=== PATIENT | female | born 1995 | race Caucasian/White ===

== ENCOUNTER → 2019-06-13 10:41 | Outpatient (CLI) | payer OTHER, SELFPAY ==
[2019-06-13 13:20] LABS: Cholesterol 168 mg/dL (200); Follicle Stimulating Hormone 6.2 mIU/mL; Glucose 79 mg/dL (74-106); High Density Lipoprotein 43 mg/dL; Luteinizing Hormone 9.2 mIU/mL; Thyroid Stim Hormone (TSH) 0.75 uIU/mL (0.358-3.74); Triglycerides 120 mg/dL; Very Low Density Lipoprotein 24 mg/dL (5-40)
[2019-06-15 09:18] LABS: Insulin 19.9 mU/L (2.6-37.6); Progesterone Level 0.75 ng/mL (See Comment)
[2019-06-17 12:07] LABS: Testosterone, Free 2.11 ng/dL (0.10-0.85); Testosterone, Total 57 ng/dL (8-48)
[2019-06-17 13:07] LABS: 17-Hydroxyprogesterone 52 ng/dL (.)
[2019-06-18 14:45] LABS: DHEA Sulfate 361.8 ug/dL (110.0-431.7)
== END ==
DX: N92.6 Irregular menstruation, unspecified (principal)
CPT/HCPCS: 36415; 80061; 82627; 82947; 83001; 83002; 83036; 83498; 83525; 84144; 84402; 84403; 84443; 82626